=== PATIENT | male | born 1965 | race Caucasian/White ===

== ENCOUNTER 2016-06-09 16:28 | Emergency (ER) | payer BC ==
--- NOTE | 2016-06-09 16:39 | EDM.PDOC ---
ED HPI Trauma - General Chief Complaint: Lower Extremity Injury/Pain Stated Complaint: L LEG PAIN/SWELLING Time Seen by Provider: 06/09/16 16:39 - History of Present Illness INITIAL COMMENTS - FREE TEXT/NARRATIVE: 51-year-old male comes emergency room with left knee pain and swelling. This is been going on for about a week. The patient developed swelling around the knee and then developed severe pain the pain is somewhat better but the swelling has remained. The patient has a history of gout affecting this knee as well as his ankle his great toe but his most recent attack involved the knee since his attack improved with indomethacin 25 mg 3 times a day he's had some residual swelling and some posterior knee discomfort. This gets a little better after he is been walking on it. Patient denies any fevers or chills no redness around the knee. Patient's significant past history of gout he does not have a regular physician he has not had problems with chest pain or breathing difficulties he has not been evaluated for diabetes. Allergies/ADRs: Allergies No Known Allergies Allergy (Verified 06/09/16 16:43) Home Medications: Ambulatory Orders Naproxen [Naprosyn] 500 mg PO Q12HR #20 tablet 06/09/16 Review of Systems - Review of Systems Review Of Systems: See Below Constitutional: Reports: no symptoms Respiratory: Reports: No Symptoms Cardiovascular: Reports: no symptoms GI/Abdominal: Reports: No symptoms Musculoskeletal: Reports: other (Dementia knee pain) Skin: Reports: no symptoms Neurological: Reports: No Symptoms Trauma Exam - Physical Exam Exam: See Below Exam Limited By: No limitations General Appearance: Reports: alert, no apparent distress Head: Reports: atraumatic, normocephalic Respiratory Exam: Reports: no respiratory distress, lungs clear, normal breath sounds Cardiovascular: Reports: regular rate, rhythm, no edema, no murmur Extremities: Reports: other (Examination of his left knee shows a diffuse effusion he has some probable discomfort posteriorly Sarabia cyst not clearly palpable. No lateral or medial joint line tenderness stressing the lateral and medial collateral ligaments is negative anterior cruciate ligament appears to be intact.) Course - Vital Signs Last Recorded V/S: Last Vital Signs Temp 36.8 C 06/09/16 16:39 Pulse 71 06/09/16 16:39 Resp 20 06/09/16 16:39 BP 137/97 H 06/09/16 16:39 Pulse Ox 96 06/09/16 16:39 - Orders/Labs/Meds Orders: Active Orders 24 hr Category Date Time Status Knee 3V Lt [CR] Stat Exams 06/09/16 17:09 Taken Labs: Laboratory Tests 06/09/16 06/09/16 06/09/16 Range/Units 17:27 17:27 17:27 WBC 9.52 H (4.23-9.07) K/mm3 RBC 5.05 (4.63-6.08) M/mm3 Hgb 14.7 (13.7-17.5) gm/L Hct 42.9 (40.1-51.0) % MCV 85.0 (79.0-92.2) fl MCH 29.1 (25.7-32.2) pg MCHC 34.3 (32.2-35.5) g/dl RDW Std Deviation 40.3 (35.1-43.9) fL Plt Count 235 (163-337) K/mm3 MPV 10.9 (9.4-12.3) fl Neutrophils % (Manual) 55 (40-60) % Band Neutrophils % 0 (0-10) % Lymphocytes % (Manual) 25 (20-40) % Atypical Lymphs % 4 % Monocytes % (Manual) 12 H (2-10) % Eosinophils % (Manual) 3 (0.8-7.0) % Basophils % (Manual) 1 (0.2-1.2) Platelet Estimate Adequate Plt Morphology Comment Normal RBC Morph Comment Normal ESR 18 H (0-15) mm/hr Sodium 139 (136-145) mEq/L Potassium 3.6 (3.5-5.1) mEq/L Chloride 105 (98-107) mEq/L Carbon Dioxide 26 (21-32) mEq/L Anion Gap 11.6 (5-15) BUN 12 (7-18) mg/dL Creatinine 1.0 (0.7-1.3) mg/dL Est Cr Clr Drug Dosing 95.92 mL/min Estimated GFR (MDRD) > 60 (>60) mL/min BUN/Creatinine Ratio 12.0 L (14-18) Glucose 92 (74-106) mg/dL Uric Acid 8.3 H (3.5-7.2) mg/dL Calcium 8.9 (8.5-10.1) mg/dL Total Bilirubin 0.7 (0.2-1.0) mg/dL AST 26 (15-37) U/L ALT 39 (16-63) U/L Alkaline Phosphatase 79 (46-116) U/L C-Reactive Protein 1.3 H* (<1.0) mg/dL Total Protein 7.2 (6.4-8.2) g/dl Albumin 3.7 (3.4-5.0) g/dl Globulin 3.5 gm/dL Albumin/Globulin Ratio 1.1 (1-2) Meds: Medications Discontinued Medications Generic Name Dose Route Start Last Admin Trade Name Freq PRN Reason Stop Dose Admin Ketorolac Tromethamine 30 mg 06/09/16 17:10 06/09/16 17:21 Toradol IM 06/09/16 17:11 30 mg ONETIME ONE Administration - Re-Assessments/Exams Free Text/Narrative Re-Assessment/Exam: 06/09/16 17:43 It sounds like this patient is a degenerative component to his knee pain however he has had gout in his knee with multiple episodes in the past. We will check labs and an x-ray of his knee we'll give him 30 mg of IM Toradol and see how he does. Patient is strongly urged to follow up with a regular provider as gout can be associated with significant medical problems. 06/09/16 19:07 Labs concerning for a uric acid of 8.3 mild elevation of the sedimentation rate and C-reactive protein minimal elevation of his white count without left shift. Patient feels much better after the dose of Toradol. And is ambulating much better. Patient will be discharged with a prescription for Naprosyn. He agrees to followup in the clinic. 06/09/16 19:14 Departure - Departure Time of Disposition: 19:08 Disposition: Home, Self-Care 01 Clinical Impression: Hyperuricemia, Gout, Degenerative joint disease of knee, left Prescriptions: Naproxen [Naprosyn] 500 mg PO Q12HR #20 tablet Forms: ED Department Discharge Additional Instructions: Return to emergency room if any questions or problems. Followup in the clinic early this next week for recheck and to establish with the local provider he needs close followup for your hyperuricemia, or elevated uric acid. As we discussed gout and hyperuricemia can be associated with other multiple medical problems. [id number] You have been started on Naprosyn and asked much like the indomethacin does for your gout take one twice daily with meals. - My Orders Last 24 Hours: My Active Orders 06/09/16 17:09 Knee 3V Lt [CR] Stat - Assessment/Plan Last 24 Hours: My Active Orders 06/09/16 17:09 Knee 3V Lt [CR] Stat
[2016-06-09 16:40] VITALS: BP 137/97
[2016-06-09] MEDS ORDERED: Ketorolac 30 MG/ML SDV IM ONE (17:10)
--- NOTE | 2016-06-10 09:47 | CR ---
Left knee: AP, lateral and sunrise patellar views of the left knee were obtained. Comparison: No previous study. Medial and lateral joint spaces are preserved. Minimal joint effusion is possible. No acute fracture or other bony abnormality is seen. Impression: 1. Minimal joint effusion is suggested. 2. Three-view left knee exam is otherwise unremarkable. Diagnostic code #2
== END 2016-06-09 19:30 | disposition home or self-care (01) ==
LOC: JD.ED 16:28
DX: M10.9 Gout, unspecified (principal); M17.12 Unilateral primary osteoarthritis, left knee
CPT/HCPCS: 36415; 73562; 80053; 84550; 85025; 85652; 86140; 96372; 99283; J1885; 99284

== ENCOUNTER 2019-12-10 19:49 | Emergency (ER) | payer SELFPAY ==
[2019-12-10 20:16] VITALS: BP 131/91; PULSE 79
--- NOTE | 2019-12-10 20:55 | EDM.PDOC ---
ED HPI GENERAL MEDICAL PROBLEM - General Chief Complaint: Genitourinary Problem Stated Complaint: BLOOD IN URINE Time Seen by Provider: 12/10/19 20:33 Source of Information: Reports: Patient History Limitations: Reports: No Limitations - History of Present Illness INITIAL COMMENTS - FREE TEXT/NARRATIVE: The patient presents with hematuria. This started 3 days ago when he was in [place]. 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 He had this happen once a few years ago but nothing since then. He has no dysuria. He has some mild low back pain. He has no history of kidney stones. He has no trauma to his kidneys. He does smoke. He has no fever, chills, cough, congestion, runny nose, chest pain, shortness of breath, abdominal pain, nausea or vomiting. He has no medical problems and he is not on any medications. Onset: Gradual Duration: Day(s): (3) Location: Reports: Back Quality: Reports: Ache Severity: Mild Improves with: Reports: None Worsens with: Reports: None Associated Symptoms: Reports: No Other Symptoms Bilateral Flank Pain Score (Numeric/FACES): 2 - Related Data Allergies Allergy/AdvReac Type Severity Reaction Status Date / Time No Known Allergies Allergy Verified 06/09/16 16:43 Home Meds: Home Meds . [No Known Home Meds] 12/10/19 [History] Past Medical History Musculoskeletal History: Reports: Gout, Other (See Below) Other Musculoskeletal History: repair of index finger-tendons;ligaments; right side Social & Family History - Tobacco Use Tobacco Use Status *Q: Current Every Day Tobacco User Years of Tobacco use: 37 Packs/Tins Daily: 1 - Caffeine Use Caffeine Use: Reports: Soda - Recreational Drug Use Recreational Drug Use: No ED ROS GENERAL - Review of Systems Review Of Systems: See Below Constitutional: Reports: No Symptoms HEENT: Reports: No Symptoms Respiratory: Reports: No Symptoms Cardiovascular: Reports: No Symptoms Endocrine: Reports: No Symptoms GI/Abdominal: Reports: No Symptoms : Reports: Hematuria. Denies: Dysuria Musculoskeletal: Reports: Back Pain (mild low back) ED EXAM, RENAL/ - Physical Exam Exam: See Below Exam Limited By: No Limitations General Appearance: Alert, No Apparent Distress Ears: Normal External Exam Nose: Normal Inspection Head: Atraumatic, Normocephalic Neck: Normal Inspection Respiratory/Chest: No Respiratory Distress, Lungs Clear, Normal Breath Sounds Cardiovascular: Regular Rate, Rhythm, No Edema, No Murmur GI/Abdominal: Soft, Non-Tender, No Organomegaly, No Mass Back Exam: Normal Inspection Extremities: Normal Inspection Course - Vital Signs Last Recorded V/S: Last Vital Signs Temp 98.8 F 12/10/19 20:14 Pulse 79 12/10/19 20:14 Resp 20 12/10/19 20:14 BP 131/91 H 12/10/19 20:14 Pulse Ox 94 L 12/10/19 20:14 - Orders/Labs/Meds Orders: Active Orders 24 hr Category Date Time Status Abdomen Pelvis wo Cont [CT] Stat Exams 12/10/19 20:39 Taken Labs: Laboratory Tests 12/10/19 12/10/19 12/10/19 Range/Units 21:00 21:01 21:01 WBC 10.61 H (4.23-9.07) K/mm3 RBC 5.29 (4.63-6.08) M/mm3 Hgb 15.4 (13.7-17.5) gm/dl Hct 46.8 (40.1-51.0) % MCV 88.5 D (79.0-92.2) fl MCH 29.1 (25.7-32.2) pg MCHC 32.9 (32.2-35.5) g/dl RDW Std Deviation 43.1 (35.1-43.9) fL Plt Count 199 (163-337) K/mm3 MPV 11.3 (9.4-12.3) fl Neut % (Auto) 52.3 (34.0-67.9) % Lymph % (Auto) 33.4 (21.8-53.1) % Glynn % (Auto) 9.5 (5.3-12.2) % Eos % (Auto) 4.1 (0.8-7.0) Baso % (Auto) 0.5 (0.1-1.2) % Neut # (Auto) 5.56 H (1.78-5.38) K/mm3 Lymph # (Auto) 3.54 (1.32-3.57) K/mm3 Glynn # (Auto) 1.01 H (0.30-0.82) K/mm3 Eos # (Auto) 0.43 (0.04-0.54) K/mm3 Baso # (Auto) 0.05 (0.01-0.08) K/mm3 Manual Slide Review Normal smear Sodium 140 (136-145) mEq/L Potassium 4.4 (3.5-5.1) mEq/L Chloride 102 (98-107) mEq/L Carbon Dioxide 29 (21-32) mEq/L Anion Gap 13.4 (5-15) BUN 20 H (7-18) mg/dL Creatinine 1.2 (0.7-1.3) mg/dL Est Cr Clr Drug Dosing 77.24 mL/min Estimated GFR (MDRD) > 60 (>60) mL/min BUN/Creatinine Ratio 16.7 (14-18) Glucose 84 (74-106) mg/dL Calcium 9.1 (8.5-10.1) mg/dL Total Bilirubin 0.6 (0.2-1.0) mg/dL AST 17 (15-37) U/L ALT 39 (16-63) U/L Alkaline Phosphatase 82 (46-116) U/L Total Protein 7.6 (6.4-8.2) g/dl Albumin 4.1 (3.4-5.0) g/dl Globulin 3.5 gm/dL Albumin/Globulin Ratio 1.2 (1-2) Urine Color Brown H (Yellow) Urine Appearance Cloudy H (Clear) Urine pH 5.5 (5.0-8.0) Ur Specific [place] > or = 1.030 (1.005-1.030) Urine Protein 2+ H (Negative) Urine Glucose (UA) Negative (Negative) Urine Ketones Trace H (Negative) Urine Occult Blood 3+ H (Negative) Urine Nitrite Negative (Negative) Urine Bilirubin 1+ H (Negative) Urine Urobilinogen 0.2 (0.2-1.0) Ur Leukocyte Esterase Negative (Negative) Urine RBC >100 H (0-5) /hpf Urine WBC 0-5 (0-5) /hpf Ur Squamous Epith Cells 0-5 (0-5) /hpf Urine Bacteria Few (FEW) /hpf Urine Mucus Few (FEW) /hpf - Re-Assessments/Exams Free Text/Narrative Re-Assessment/Exam: 12/10/19 20:54 I ordered labs, UA and a CT of his abdomen and pelvis without contrast to look for any kidney stones. 12/10/19 21:50 His WBC is elevated at 10.61. His CMP looks good. His UA shows no UTI but he has >[address] shows a 1.8cm dense/mixed density mass/structure within the posterior bladder. May represent an underlying bladder mass/malignancy with other possible etiologies including debris, stone or blood products. Recommend correlation with pelvic/bladder US as a 1st step to further evaluate and exclude underlying sold bladder mass. There is associated diffuse bladder wall thickening nonspecific but which may at least partially related to underdistention. Mild hepatic steatosis. Small gallstones. I called [facility] in [place] and talked with Dr Gibson and he will follow up with the patient and get him a time to come in within a week. Departure - Departure Time of Disposition: 22:00 Disposition: Home, Self-Care 01 Condition: Good Clinical Impression: Bladder tumor Hematuria Qualifiers: Hematuria type: unspecified type Qualified Code(s): R31.9 - Hematuria, unspecified - Discharge Information *PRESCRIPTION DRUG MONITORING PROGRAM REVIEWED*: Not Applicable *COPY OF PRESCRIPTION DRUG MONITORING REPORT IN PATIENT JOSE: Not Applicable Referrals: PCP,None [Primary Care Provider] - Hadley Gibson MD [Ordering Only Provider] - 3 Days Forms: ED Department Discharge Additional Instructions: Dr Gibson the urologist at [facility] in [place] will contact you to make a time to come in. If you do not hear from him by noon, call his office. Please return if you are worse. With blood in your urine it can form clots and that can obstruct you from urinating. If you stop urinating please come back or go to [place]. Sepsis Event Note (ED) - Evaluation Sepsis Screening Result: No Definite Risk - Focused Exam Vital Signs: Vital Signs Temp Pulse Resp BP Pulse Ox 12/10/19 20:14 98.8 F 79 20 131/91 H 94 L - My Orders Last 24 Hours: My Active Orders 12/10/19 20:39 Abdomen Pelvis wo Cont [CT] Stat - Assessment/Plan Last 24 Hours: My Active Orders 12/10/19 20:39 Abdomen Pelvis wo Cont [CT] Stat
== END 2019-12-10 22:11 | disposition home or self-care (01) ==
LOC: JD.ED 19:49
DX: D49.4 Neoplasm of unspecified behavior of bladder (principal); F17.210 Nicotine dependence, cigarettes, uncomplicated
CPT/HCPCS: 36415; 74176; 80053; 81001; 85025; 99284-25

== ENCOUNTER 2020-10-19 19:17 | Emergency (ER) | payer BC ==
[2020-10-19 19:27] VITALS: BP 166/100; PULSE 84
--- NOTE | 2020-10-19 19:45 | EDM.PDOC ---
ED HPI GENERAL MEDICAL PROBLEM - General Chief Complaint: Lower Extremity Injury/Pain Stated Complaint: RT KNEE INJURY Time Seen by Provider: 10/19/20 19:31 Source of Information: Reports: Patient, RN Notes Reviewed History Limitations: Reports: No Limitations - History of Present Illness INITIAL COMMENTS - FREE TEXT/NARRATIVE: Patient is a 55-year-old male who presents to the ER for evaluation of a right knee injury. States this morning, he was walking around a trailer, when the asphalt kind had a dip and he stepped into it, and this made his right knee buckled. He thought he heard or felt a pop at that time. He has had anterior medial right knee pain since that event. 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 He states that his knee has been having issues with buckling from time to time today. He last took 600 mg of ibuprofen roughly 3 hours ago. Not having any numbness or tingling distal to the injury, not having pain into his hip. Patient denies any other sick-like symptoms, fever/chills, cough/shortness of breath, nausea/vomiting/diarrhea. Denies any other previous trauma or injury to this knee. Right Knee Pain Score (Numeric/FACES): 7 - Related Data Allergies Allergy/AdvReac Type Severity Reaction Status Date / Time No Known Allergies Allergy Verified 10/19/20 19:29 Home Meds: Home Meds . [No Known Home Meds] 12/10/19 [History] Past Medical History Musculoskeletal History: Reports: Gout, Other (See Below) Other Musculoskeletal History: repair of index finger-tendons;ligaments; right side Oncologic (Cancer) History: Reports: Bladder - Past Surgical History Male Surgical History: Reports: Other (See Below) Other Male Surgeries/Procedures: surgery for bladder cancer Social & Family History - Tobacco Use Tobacco Use Status *Q: Current Every Day Tobacco User Years of Tobacco use: 38 Packs/Tins Daily: 1 - Caffeine Use Caffeine Use: Reports: Soda - Recreational Drug Use Recreational Drug Use: No Review of Systems - Review of Systems Review Of Systems: Comprehensive ROS is negative, except as noted in HPI. ED EXAM, GENERAL - Physical Exam Exam: See Below Exam Limited By: No Limitations General Appearance: Alert, WD/WN, No Apparent Distress Respiratory/Chest: No Respiratory Distress, Lungs Clear, Normal Breath Sounds, No Accessory Muscle Use, Chest Non-Tender Cardiovascular: Normal Peripheral Pulses, Regular Rate, Rhythm, No Edema Peripheral Pulses: 2+: Dorsalis Pedis (L), Dorsalis Pedis (R) Extremities: Normal Inspection, Normal Capillary Refill, Leg Pain (there is point tenderness to the patient aneriormedial inferior knee.), Limited Range of Motion (of right knee d/t pain). No: Joint Swelling Neurological: Alert, Oriented, Normal Cognition, No Motor/Sensory Deficits Psychiatric: Normal Affect, Normal Mood Skin Exam: Warm, Dry, Intact, Normal Color, No Rash Course - Vital Signs Last Recorded V/S: Last Vital Signs Temp 98 F 10/19/20 19:25 Pulse 84 10/19/20 19:25 Resp 16 10/19/20 19:25 BP 166/100 H 10/19/20 19:25 Pulse Ox 98 10/19/20 19:25 - Orders/Labs/Meds Orders: Active Orders 24 hr Category Date Time Status DME for Discharge [COMM] Routine Oth 10/19/20 20:01 Ordered - Re-Assessments/Exams Free Text/Narrative Re-Assessment/Exam: 10/19/20 19:45 Patient presents to the ER for evaluation of his right knee pain. We will go ahead and get a x-ray for evaluation at this time. Likely this will be some sort of soft tissue injury. 10/19/20 20:01 I was able to review the patient's x-rays, with Dr. Monte, and there are no acute fractures appreciated. I did go over these findings with the patient, and he states that he is having some difficulty raising his leg off of the bed. States that he can raise his left leg off of the bed, when he tries to raise his right leg, he cannot do any of that at all. I will place him in a knee immobilizing brace, to stabilize and prevent further injury to the joint, pat ient states that there is not a lot of pain with weightbearing, and states that he would not use crutches if they were given to him. We will have him follow-up with orthopedics, for ongoing evaluation and possible MRI management. 10/19/20 20:34 The patient x-rays have been read, small joint effusion but no acute bony abnormalities. Departure - Departure Time of Disposition: 20:02 Disposition: Home, Self-Care 01 Condition: Good Clinical Impression: Right knee sprain Qualifiers: Encounter type: initial encounter Involved ligament of knee: unspecified ligament Qualified Code(s): S83.91XA - Sprain of unspecified site of right knee, initial encounter - Discharge Information *PRESCRIPTION DRUG MONITORING PROGRAM REVIEWED*: No *COPY OF PRESCRIPTION DRUG MONITORING REPORT IN PATIENT JOSE: No Instructions: Knee Sprain, Adult, [id number] Referrals: PCP,None [Primary Care Provider] - Forms: ED Department Discharge, ED Return to Work/School Form Additional Instructions: You have been evaluated in the ED for your right knee injury. Your x-ray demonstrated no acute fractures or other bony abnormalities of your right knee. You have been provided with a knee immobilizing brace to prevent further injury and/or stabilize the injury you received today. Please use ice as tolerated to the affected area. You may elevate the affected area to provide further relief from swelling. You may take Tylenol 500 mg or ibuprofen 600mg q6 hrs for pain relief. Please do so until you have a tolerable level of pain with activity. Do not exceed 4000mg Tylenol, Do not exceed 3200mg ibuprofen in a 24 hour time period. Please call Ortho for follow-up and further evaluation Dr. Raymond is our orthopedic surgeon, his office number is [phone]. Please call and set up an appointment as soon as possible for further management. Please return to ED if your symptoms should change or worsen. Sepsis Event Note (ED) - Evaluation Sepsis Screening Result: No Definite Risk - Focused Exam Vital Signs: Vital Signs Temp Pulse Resp BP Pulse Ox 10/19/20 19:25 98 F 84 16 166/100 H 98 - My Orders Last 24 Hours: My Active Orders 10/19/20 20:01 DME for Discharge [COMM] Routine - Assessment/Plan Last 24 Hours: My Active Orders 10/19/20 20:01 DME for Discharge [COMM] Routine
--- NOTE | 2020-10-19 20:28 | CR ---
Right knee: 4 views of the right knee were obtained. Comparison: No prior knee study is available. Questionable small joint effusion is present. Medial and lateral joint compartments are maintained in height. No acute fracture, dislocation or other bony abnormality is appreciated. Impression: 1. Possible small joint effusion. 2. No acute osseous abnormality is seen. Diagnostic code #2
== END 2020-10-19 20:30 | disposition home or self-care (01) ==
LOC: JD.ED 19:17
DX: S83.91XA Sprain of unspecified site of right knee, initial encounter (principal); Z72.0 Tobacco use; W22.09XA Striking against other stationary object, initial encounter
CPT/HCPCS: 73564-26-RT; 73564-RT; 99283; 99283-25

== ENCOUNTER 2022-09-11 05:55 | Emergency (ER) | payer BC ==
[2022-09-11] MEDS ORDERED: Ketorolac 30 MG/ML SDV IVPUSH ONE (06:14)
[2022-09-11] MEDS ORDERED: Sodium Chloride 0.9% 10 ML Syringe FLUSH PRN (06:14)
[2022-09-11 06:25] LABS: APPEARANCE,URINE SLT CLOUDY (Clear); BILIRUBIN,URINE NEGATIVE (Negative); COLOR,URINE YELLOW (Yellow); GLUCOSE,URINE NEGATIVE (Negative); KETONES,URINE NEGATIVE (Negative); LEUKOCYTE ESTERASE,URINE NEGATIVE (Negative); NITRITE,URINE NEGATIVE (Negative); OCCULT BLOOD,URINE 3+ (Negative); PH,URINE 5.5 (5.0-8.0); PROTEIN,URINE 2+ (Negative); UROBILINOGEN,URINE 0.2 (0.2-1.0)
[2022-09-11] MEDS ORDERED: Iopamidol 612 MG/ML 100 ML Bottle IVPUSH ONE (06:32)
[2022-09-11 06:40] LABS: BASOPHILS ABSOLUTE AUTO 0.04 K/mm3 (0.01-0.08); BASOPHILS PERCENT AUTO 0.3 % (0.1-1.2); EOSINOPHILS ABSOLUTE AUTO 0.54 K/mm3 (0.04-0.54); EOSINOPHILS PERCENT AUTO 4.6 (0.8-7.0); HEMATOCRIT 50.1 % (40.1-51.0); HEMOGLOBIN 17.3 gm/dl (13.7-17.5); IMMATURE GRAN ABSOLUTE AUTO 0.02 K/mm3 (0.00-0.10); IMMATURE GRAN PERCENT AUTO 0.2 % (<=1.0); INR 0.95; LYMPHOCYTES ABSOLUTE AUTO 2.61 K/mm3 (1.32-3.57); LYMPHOCYTES PERCENT AUTO 22.4 % (21.8-53.1); MEAN CORPUSCULAR HEMOGLOBIN 29.5 pg (25.7-32.2); MEAN CORPUSCULAR HGB CONC 34.5 g/dl (32.2-35.5); MEAN CORPUSCULAR VOLUME 85.3 fl (79.0-92.2); MEAN PLATELET VOLUME 11.9 fl (9.4-12.3); MONOCYTES ABSOLUTE AUTO 0.91 K/mm3 (0.30-0.82); MONOCYTES PERCENT AUTO 7.8 % (5.3-12.2); NEUTROPHILS ABSOLUTE AUTO 7.51 K/mm3 (1.78-5.38); NEUTROPHILS PERCENT AUTO 64.7 % (34.0-67.9); PLATELET COUNT,PLT 227 K/mm3 (163-337); PROTHROMBIN TIME 10.2 SECONDS (9.7-12.0); RED BLOOD CELL COUNT 5.87 M/mm3 (4.63-6.08); WHITE BLOOD CELL COUNT,WBC 11.63 K/mm3 (4.23-9.07)
[2022-09-11 06:43] LABS: ALANINE AMINOTRANSFERASE,ALT 30 U/L (16-63); ALBUMIN 4.1 g/dl (3.4-5.0); ALKALINE PHOSPHATASE 111 U/L (46-116); ANION GAP 11.5 (5-15); ASPARTATE AMNIOTRANSFERASE,AST 13 U/L (15-37); BILIRUBIN TOTAL 0.4 mg/dL (0.2-1.0); BLOOD UREA NITROGEN,BUN 23 mg/dL (7-18); BUN/CREATININE RATIO 16.4 (14-18); CALCIUM 9.1 mg/dL (8.5-10.1); CARBON DIOXIDE,CO2 28 mEq/L (21-32); CHLORIDE,CL 102 mEq/L (98-107); CREATININE 1.4 mg/dL (0.7-1.3); ESTIMATED GFR 59 mL/min (>60); GLUCOSE RANDOM 230 mg/dL (70-99); POTASSIUM,K 4.5 mEq/L (3.5-5.1); PROTEIN TOTAL,TP 8.2 g/dl (6.4-8.2); SODIUM,NA 137 mEq/L (136-145)
[2022-09-11 06:50] LABS: BACTERIA,URINE FEW /hpf (FEW); EPITHELIAL CELLS,URINE NOT SEEN /hpf (0-5); MUCUS,URINE MODERATE /hpf (FEW); RBC,URINE 75-100 /hpf (0-5); WBC,URINE NOT SEEN /hpf (0-5)
[2022-09-11 18:30] VITALS: BP 162/99; PULSE 63
== END 2022-09-11 08:18 | disposition home or self-care (01) ==
LOC: JD.ED 05:55
DX: N20.2 Calculus of kidney with calculus of ureter (principal); F17.210 Nicotine dependence, cigarettes, uncomplicated
CPT/HCPCS: 36415; 74177; 80053; 81001; 85025; 85610; 96374; 99284; J1885; J3490; Q9967